=== PATIENT | male | born 1965 | race Caucasian/White ===

== ENCOUNTER 2022-03-01 20:29 | Emergency (ER) | payer OTHER ==
[2022-03-01 20:43] VITALS: BP 159/70; PULSE 71; RESP 18; TEMP 98.5
--- NOTE | 2022-03-01 21:44 | CT ---
EXAMINATION TYPE: CT brain jigar medina con DATE OF EXAM: 03/01/2022 COMPARISON: None HISTORY: head trauma CT DLP: combined DLP 1520.6 mGycm Automated exposure control for dose reduction was used. Images of the brain and cervical spine obtained with no contrast. Ventricles and sulci appear normal. There is no mass effect or midline shift. No sign of intracranial hemorrhage. There is left frontal scalp soft tissue swelling. Calvarium is intact. No evidence of ce rebral edema. There is some straightening of the cervical spine. There is degenerative disc space narrowing from C2 to C6. There is mild spurring of the endplates. Facet joints are intact. No compression fracture. No subluxation. Temporal bones appear normal. Occipital bone is normal. IMPRESSION: Spondylotic changes in the cervical spine. No fracture. Negative CT scan of the brain. Left frontal scalp hematoma.
[2022-03-01] MEDS ORDERED: DIPH,PERTUS(ACELL)TETVAC-LF 0.5 ML VIAL IM ONE (21:45)
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
--- NOTE | 2022-03-01 21:50 | XR ---
EXAMINATION TYPE: XR chest 2V DATE OF EXAM: 03/01/2022 COMPARISON: 07/24/2016 HISTORY: Trauma. Pain TECHNIQUE: 2 views FINDINGS: Heart and mediastinum are normal. Lungs are clear of infiltrate. No heart failure. There ar e no hilar masses. No pleural effusion or pneumothorax. Bony thorax appears intact. IMPRESSION: No active cardiopulmonary disease. There is minimal scarring left lung base without olmstead e.
[2022-03-01] MEDS ORDERED: CEPHALEXIN 500 MG CAP PO STA (21:58)
[2022-03-01] MEDS ORDERED: BACITRACIN OINT 1 EACH PACKET TOPICAL ONE (22:10)
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
== END 2022-03-01 22:30 | disposition home or self-care (01) ==
LOC: EC 20:29
DX: S06.0X0A Concussion without loss of consciousness, initial encounter (principal); S00.83XA Contusion of other part of head, initial encounter; R40.2412 Glasgow coma scale score 13-15, at arrival to emergency department; I10 Essential (primary) hypertension; Z23 Encounter for immunization; V86.59XA Driver of other special all-terrain or other off-road motor vehicle injured in nontraffic accident, initial encounter
CPT/HCPCS: 70450; 70486; 71046; 72125; 90471; 90715; 99284

== ENCOUNTER 2024-06-21 10:05 | Day surgery (SDC) | payer OTHER ==
[~2024-06-21 10:05] MED LIST: ALPRAZolam 0.5 MG TAB PO PRN; ASPIRIN 325 MG TAB PO ONE; ATORVASTATIN 80 MG TAB PO ONE; HEPARIN SODIUM,PORCINE (1 ML) 2,500 UNIT in SODIUM CHLORIDE 0.9% 250 ML IRRIGATION PRN; HEPARIN SODIUM,PORCINE 10,000 UNIT in SODIUM CHLORIDE 0.9% 1,000 ML IRRIGATION PRN; NITROGLYCERIN SL TABS 0.4 MG TAB SUBLINGUAL PRN
[2024-06-21] MEDS: ALPRAZolam 0.25 MG TAB PO PRN (10:41)
[2024-06-21] MEDS: SODIUM CHLORIDE 0.9% 1,000 ML in EMPTY BAG 1 BAG IV SCH (10:41)
[2024-06-21 10:54] LABS: Basophils % (A) 1 %; Eosinophils # (A) 0.2 k/uL (0-0.7); Eosinophils % (A) 3 %; HCT 48.6 % (39.0-53.0); HGB 16.4 gm/dL (13.0-17.5); Lymphocytes # (A) 1.4 k/uL (1.0-4.8); Lymphocytes % (A) 21 %; MCH 32.2 pg (25.0-35.0); MCHC 33.7 g/dL (31.0-37.0); MCV 95.5 fL (80.0-100.0); Mean Platelet Volume 7.9; Monocytes # (A) 0.4 k/uL (0-1.0); Monocytes % (A) 6 %; Neutrophils # (A) 4.4 k/uL (1.3-7.7); Neutrophils % (A) 67 %; Platelet Count 255 k/uL (150-450); RBC 5.09 m/uL (4.30-5.90); WBC 6.5 k/uL (3.8-10.6)
[2024-06-21 10:56] VITALS: TEMP 97.1
[2024-06-21 11:07] LABS: African American GFR (CKD) >90 (>60 ml/min/1.73 sqM); Anion Gap 7 mmol/L; Blood Urea Nitrogen 14 mg/dL (9-20); Calcium 9.5 mg/dL (8.4-10.2); Carbon Dioxide 25 mmol/L (22-30); Chloride 106 mmol/L (98-107); Glucose 114 mg/dL (74-99); Non-African American GFR(CKD) >90 (>60 ml/min/1.73 sqM); Sodium 138 mmol/L (137-145)
[2024-06-21 11:08] LABS: Potassium 4.4 mmol/L (3.5-5.1)
[2024-06-21] MEDS: SODIUM CHLORIDE 0.9% 1,000 ML IV ONE (11:23)
[2024-06-21] MEDS: HEPARIN SODIUM,PORCINE 10,000 UNIT in SODIUM CHLORIDE 0.9% 1,000 ML IRRIGATION ONE (11:23)
[2024-06-21] MEDS: HEPARIN SODIUM,PORCINE (1 ML) 2,500 UNIT in SODIUM CHLORIDE 0.9% 250 ML IRRIGATION ONE (11:24)
[2024-06-21] MEDS: fentaNYL (PF) 50 MCG/ML 2 ML AMP IVP ONE (11:45)
[2024-06-21] MEDS: LIDOCAINE 1% INJ 10MG/ML (20 ML MDV) SQ ONE (11:48)
[2024-06-21] MEDS: MIDAZOLAM 2 MG/2 ML VIAL IVP ONE ×2 (11:49→11:53)
[2024-06-21] MEDS: VERAPAMIL SYRINGE (5 MG/10 ML) INTRAARTER ONE (11:53)
[2024-06-21] MEDS: HEPARIN SODIUM 1,000 UN/ML (10ML VL) IVP ONE (11:54)
[2024-06-21] MEDS: IOPAMIDOL-370 100ML BTL INJ ONE (12:04)
[2024-06-21] MEDS ORDERED: RX INFO: IV CONTRAST WAS GIVEN 1 EACH MISC MISCELLANE PRN (12:25)
[2024-06-21] MEDS ORDERED: SODIUM CHLORIDE 0.9% 1,000 ML IV SCH (12:30)
--- NOTE | 2024-06-21 12:31 | P.CARDCATH ---
Date of Procedure: 06/21/24 Description of Procedure: Cardiac Catheterization: The patient is a 59-year-old male with known history of hypertension, hyperlipidemia, chronic tobacco use who has been complaining of symptoms of progressive dyspnea and chest discomfort. He had an abnormal MPI. Recommendations were made regarding cardiac catheterization, the risks and the complications were discussed with the patient who is in full understanding and agreement. 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 Using Xylocaine Anesthesia and modified Seldinger technique, a 6-Albanian sheath was introduced in the right radial artery . Subsequently, selective coronary angiography was performed using a 5-Albanian 3.5 bend Austin catheter. Multiple views of the coronary artery including hemiaxial views were obtained. The right Austin catheter was used to cross the aortic valve and LVEDP was calculated. Following that, catheter and sheath were removed. Hemostasis was obtained with deployment of vascular band . There was no immediate complication. Patient was returned to room in stable condition. Of note, the patient received a total of 5000 units of intravenous heparin as well as intra-arterial verapamil. Findings: Fluoroscopy: Calcifications of the coronary arteries was noted Left main: This is a large size vessel, bifurcating into LAD and left circumflex, left main has no obstructive disease LAD: This is a large size vessel reaching to the apex with a wraparound apex segment giving rise to a small diagonal branch in the distal segment. The proximal LAD has an 80% lesion the rest of the vessel has intimal disease with no high-grade stenosis. Left circumflex: This is a nondominant vessel giving rise to a very proximal obtuse marginal branch, large in caliber that has an ulcerated plaque with a area of stenosis of 90%. There is a suggestion that there is a second obtuse marginal branch that is occluded although the ostium of that branch is not well- visualized. RCA: This is a large size vessel, bifurcating distally to PDA and PLV. The vessel is ectatic throughout its course. The proximal right coronary artery has a 70 to 80% stenosis, the rest of the vessel has mild diffuse intimal disease with no high-grade stenosis. Left Ventriculogram: Not performed Hemodynamics: There was no gradient across the aortic valve, LVEDP was 20-25 mmHg Conclusion: 1. Calcified coronary artery 2. Severe obstructive disease in the proximal LAD 3. Severe disease in a large first obtuse marginal branch 4. Ectatic right coronary artery with severe disease proximally Recommendations: In view of the findings and the anatomy I have recommended to undergo evaluation for coronary artery bypass grafting in addition to aggressive coronary risk modifications and smoking cessation. The patient will be referred to [place] quit line. The findings and the recommendations were discussed with the patient and the family and they were in full understanding and agreement. Duration of sedation is 18 minutes.
[2024-06-21 12:47] VITALS: RESP 16
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
--- NOTE | 2024-06-21 15:24 | US ---
EXAMINATION TYPE: Pre-Operative Non-Invasive Evaluation of the hand for Potential Radial Artery Lissa lugo, Measurements only DATE OF EXAM: 06/21/2024 3:06 PM CLINICAL INDICATION: Male, 59 years old with history of Pre-Op Cardiac Surgery; Left SIDE PERFORMED: Left TECHNIQUE: Grayscale color Doppler imaging of the radial artery(s) FINDINGS: Dominant hand: Right Duplex Findings: Radial Artery: Color flow seen Measurements in mm, transverse view: Left Radial: Proximal: 3.2 x 3.0 mm Mid: 3.2 x 2.0 mm Distal: 2.8 x 2.3 mm IMPRESSION: 1. Bilateral Radial artery measurements listed above. 2. Performing surgeon to determine viability as conduit. [facility], , 06/21/2024 3:21 PM
--- NOTE | 2024-06-21 15:24 | US ---
EXAMINATION TYPE: US vein mapping BILAT DATE OF EXAM: 06/21/2024 2:59 PM COMPARISON: NONE CLINICAL INDICATION: Male, 59 years old with history of PreOp Cardiac Surgery; Open heart TECHNIQUE: Grayscale and color Doppler imaging of the lower extremity venous system. SIDE PERFORMED: FINDINGS: PATIENT HISTORY: Smoker: yes Heart Disease: Yes Previous DVT: no Vascular Surgery: no Discoloration: no Hypertension: no Diabetes: no Paralysis: no Varicosities: no Edema: no DUPLEX FINDINGS: Greater Saphenous: Color flow seen Lesser Saphenous: Color flow seen Measurements in mm: Right Greater Saphenous: Groin: 7.7 x 7.6 mm High Thigh: 7.6 x 5.6 mm Mid Thigh: 3.8 x 3.4 mm Above Knee: 3.2 x 3.5 mm Knee: 3.5 x 3.0 mm Below Knee: 4.1 x 3.4 mm Mid Calf: 3.3 x 2.7 mm At Ankle: 4.0 x 2.3 mm Left Greater Saphenous: Groin: 9.4 x 9.4 mm High Thigh: 4.5 x 5.8 mm Mid Thigh: 6.1 x 5.8mm Above Knee: 4.8 x 3.4 mm Knee: 5.3 x 4.3 mm Below Knee: 4.2 x 3.8 mm Mid Calf: 3.3 x 2.4 mm At Ankle: 4.0 x 2.9 mm IMPRESSION: 1. No evidence for occlusion. 2. GSV measurements listed above. 3. Performing surgeon to determine viability as conduit. [facility], , 06/21/2024 3:22 PM
--- NOTE | 2024-06-21 15:27 | US ---
EXAMINATION TYPE: US carotid duplex BILAT DATE OF EXAM: 06/21/2024 COMPARISON: NONE CLINICAL INDICATION: Male, 59 years old with history of Pre-Op Cardiac Surgery; Open heart TECHNIQUE: Grayscale, color Doppler and spectral Doppler evaluation of the bilateral carotid systems and vertebral arteries.Indirect Doppler criteria was utilized. 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 IMPRESSION: Right: Less than 50% stenosis of the carotid bifurcation. Normal (no stenosis)=ICA PSV < 125 cm/s: ra anitha < 2.0: ICA EDV<40 cm/s. Left: Less than 50% stenosis of the carotid bifurcation. Normal (no stenosis)=ICA PSV < 125 cm/s: rat io < 2.0: ICA EDV<40 cm/s. Criteria for Assigning % of Stenosis / Diameter reduction (Estimation based on the indirect measurements of the internal carotid artery velocities (ICA PSV). 1. Normal (no stenosis)=ICA PSV < 125 cm/s: ratio < 2.0: ICA EDV<40 cm/s. 2. Less than 50% stenosis=ICA PSV < 125 cm/s: ratio < 2.0: ICA EDV<40 cm/s. 3. 50 to 69% stenosis=ICA PSV of 125 to 230 cm/s: ration 2.0 ? 4.0: ICA EDV 40-100 cm/s. 4. Greater than 70% stenosis to near occlusion= ICA PSV > 230 cm/s: ratio > 4.0: ICA EDV > 100 cm/s. 5. Near occlusion= ICA PSV velocities may be low or undetectable: variable ratio and ICA EDV. 6. Total occlusion=unable to detect flow. [facility], , 06/21/2024 3:25 PM
--- NOTE | 2024-06-21 15:29 | US ---
EXAMINATION TYPE: US arterial LE multi level DATE OF EXAM: 06/21/2024 1:23 PM CLINICAL INDICATION: Male, 59 years old with history of Ankle Brachial Index (AVRIL) ; History of: Preop Doppler Waveforms: Right: Monophasic Left: Monophasic Right Brachial Pressure: 136 Left Brachial Pressure: 136 Ankle-Brachial Indices: Right: 1.19 Left: 1.10 (Vessel hardening > 1.4; Normal 0.9 - 1.4, Moderate 0.7 - 0.9, Severe 0.5-0.7) Toe Brachial Indices: Right: NA Left: NA IMPRESSION: Normal bilateral AVRIL. [facility], Workstation: [id number], 06/21/2024 3:27 PM
[2024-06-21 15:54] VITALS: BP 124/76; PULSE 76
[2024-06-21 16:36] LABS: Appearance,Urine Clear (Clear); Bilirubin,Urine Negative (Negative); Blood,Urine Negative (Negative); Color,Urine Yellow; Glucose,Urine (UA) Negative (Negative); Ketones,Urine Negative (Negative); Leukocyte Esterase,Urine Negative (Negative); Nitrite,Urine Negative (Negative); PH, Urine 7.5 (5.0-8.0); Protein,Urine Negative (Negative); Specific Gravity,Urine 1.021 (1.001-1.035); Urobilinogen,Urine <2.0 mg/dL (<2.0)
--- NOTE | 2024-06-21 16:37 | XR ---
EXAMINATION TYPE: XR chest 2V DATE OF EXAM: 06/21/2024 3:58 PM CLINICAL INDICATION: Male, 59 years old with history of PreOp Cardiac Surgery; clearance COMPARISON: Chest radiographs from 03/01/2022. TECHNIQUE: XR chest 2V Frontal and lateral views of the chest. FINDINGS: Lungs/Pleura: There is no evidence of pleural effusion, focal consolidation, or pneumothorax. Pulmonary vascularity: Unremarkable. Heart/mediastinum: Cardiomediastinal silhouette is enlarged and stable. Musculoskeletal: No acute osseous pathology. IMPRESSION: Cardiomegaly and mild pulmonary vascular congestion. Correlate with BNP for congestive heart failure. [facility], , 06/21/2024 4:35 PM
--- NOTE | 2024-06-21 16:50 | CT ---
EXAMINATION TYPE: CT chest wo con CT DLP: 661.3 mGycm, Automated exposure control for dose reduction was used. DATE OF EXAM: 06/21/2024 3:58 PM COMPARISON: 06/21/2024 CLINICAL INDICATION: Male, 59 years old with history of Evaluate aorta preop cardiac surgery; PHH, pr e-op open heart, Cardiac surgery. TECHNIQUE: Multiple axial images were obtained through the chest. Sagittal and coronal reformats were created for review. MIP was performed on a separate workstation. Contrast used: mL of (None if empty) Oral contrast used: (None if empty) FINDINGS: LUNGS/ PLEURA: Mild centrilobular emphysema changes. No focal consolidation, pneumothorax or pleural effusion.r lower lobe 3 mm nodule series 3 image 35 AIRWAY: Patent and unremarkable. HEART: The heart is mildly increased in size..Atherosclerosis of the arterial vasculature. No signifi cant calcifications of the aorta. MEDIASTINUM: No gross evidence of adenopathy. VASCULATURE: No aortic aneurysm. MUSCULOSKELETAL: Moderate disc degeneration changes are present throughout the thoracolumbar spine. T 9 vertebral body lucent lesion possibly representing vertebral body hemangioma. SOFT TISSUES/LYMPH NODES: Unremarkable. LOWER NECK: No significant findings. UPPER ABDOMEN: Diffuse low-attenuation to the liver parenchyma. Left renal cyst. Renal sinus vascular calcifications. IMPRESSION: 1. No significant calcifications of the aortic valve. 2. Moderate coronary artery atherosclerosis. 3. Mild cardiomegaly. 4. Hepatic steatosis. 5. Right lower lobe 3 mm pulmonary nodule. [facility], , 06/21/2024 4:47 PM
[2024-06-21] MEDS ORDERED: METOPROLOL TARTRATE 25 MG TAB PO SCH (21:00)
[2024-06-22] MEDS ORDERED: ASPIRIN 81 MG PO SCH (09:00)
[2024-06-22] MEDS ORDERED: ATORVASTATIN 40 MG TAB PO SCH (09:00)
[2024-06-22] MEDS ORDERED: amLODIPine 10 MG TAB PO SCH (09:00)
== END 2024-06-21 16:03 | disposition home or self-care (01) ==
LOC: CATHCVL 10:05
PROVIDERS: ATTEND Internal Medicine Interventional Cardiology
DX: R94.39 Abnormal result of other cardiovascular function study (principal); E78.2 Mixed hyperlipidemia; I10 Essential (primary) hypertension; F17.210 Nicotine dependence, cigarettes, uncomplicated; Z82.49 Family history of ischemic heart disease and other diseases of the circulatory system; Z79.899 Other long term (current) drug therapy
CPT/HCPCS: 93458; 80048; 85025; 81003; 87070; 71046; 93931; 93970; 93922; 93880; 71250; C1769 ×2; C1894; J2250; J1644 ×3; J2003; J3010; Q9967